=== PATIENT | female | born 1955 | race Hispanic/Latino ===

== ENCOUNTER → 2024-12-06 | Outpatient (REF) | payer MEDICARE ==
[~2024-12-06] MED LIST: B12 ACTIVE1000 MCG; D3-5000125 MCG; K2 PLUS D3 TAB1 EACH PO; LEVOTHYROXINE75 MCG PO; LIDOCAINE HCL 2% LOCAL INJ 5 ML SDV VIAL INJ ONE; LISINOPRIL10 MG PO; OMEPRAZOLE20 MG; PROPOFOL IV EMULSION 10 MG/ML 20 ML VIAL ONE; TUMERIC; VITAMIN C1000 MG PO; VITAMIN D325 MCG
[2024-12-06 10:06] LABS: BASOPHILS # (AUTO) 0.1 (0.0-0.1); BASOPHILS % 0.6 % (0.0-1.0); EOSINOPHILS # (AUTO) 0.2 (0.0-0.4); EOSINOPHILS % 1.8 % (0.0-6.0); HEMATOCRIT 39.5 % (34.2-44.1); HEMOGLOBIN 13.4 g/dL (12.0-16.0); LYMPHOCYTES # (AUTO) 3.3 (1.0-3.2); LYMPHOCYTES % 34.7 % (18.0-39.1); MEAN CORPUSCULAR HEMOGLOBIN 29.6 pg (28-32); MEAN CORPUSCULAR HGB CONC 33.9 g/dL (31-35); MEAN CORPUSCULAR VOLUME 87.2 fL (81-99); MONOCYTES # (AUTO) 0.9 (0.2-0.8); MONOCYTES % 9.8 % (4.4-11.3); NEUTROPHILS # (AUTO) 4.9 (2.1-6.9); NEUTROPHILS % 52.7 % (38.7-80.0); PLATELET COUNT 268 x10e3/uL (140-360); RED BLOOD COUNT 4.53 x10e6/uL (3.6-5.1); RED CELL DISTRIBUTION WIDTH 13.5 % (11.7-14.4); WHITE BLOOD COUNT 9.39 x10e3/uL (4.8-10.8)
== END ==
LOC: RAD 08:10 → EDSTATUS 12-16 08:30
PROVIDERS: ATTEND Internal Medicine Gastroenterology
DX: Z01.818 Encounter for other preprocedural examination (principal); I10 Essential (primary) hypertension; Z68.31 Body mass index [BMI] 31.0-31.9, adult; Z71.3 Dietary counseling and surveillance; Z78.9 Other specified health status; Z86.0100 Personal history of colon polyps, unspecified
CPT/HCPCS: 36415; 85025; 93005; J2003

== ENCOUNTER 2025-04-12 08:06 | Emergency (ER) | payer MEDICARE ==
[~2025-04-12] VITALS: Ht 154.9 cm; Wt 73.0 kg
[~2025-04-12 08:06] MED LIST changes: -LIDOCAINE HCL 2% LOCAL INJ 5 ML SDV VIAL INJ ONE; -PROPOFOL IV EMULSION 10 MG/ML 20 ML VIAL ONE
[2025-04-12 08:33] VITALS: PULSE 88; RESP 17; TEMP 97.8; O2SAT 98
[2025-04-12] MEDS: KETOROLAC TROMETHAMINE 30 MG/ML VIAL IM ONE (09:26)
[2025-04-12] MEDS ORDERED: METHOCARBAMOL500 MG PO (09:28)
[2025-04-12] MEDS ORDERED: NAPROSYN500 MG PO (09:28)
[2025-04-12] MEDS: METHYLPREDNISOLONE ACETATE 80 MG/ML VIAL IM ONE (10:10)
== END 2025-04-12 11:26 | disposition home or self-care (01) ==
LOC: ER 08:37
DX: M25.562 Pain in left knee (principal)
CPT/HCPCS: 73562; 99283; J1040; J1885